=== PATIENT | female | born 1975 | race Caucasian/White ===

== ENCOUNTER 2019-09-26 03:49 | Emergency (ER) | payer OTHER ==
[2019-09-26] MEDS ORDERED: diphenhydrAMINE HCL 50 MG/ML VIAL IVP ONE (03:56)
[2019-09-26] MEDS ORDERED: FAMOTIDINE 20 MG/2 ML VIAL IV ONE (03:56)
[2019-09-26] MEDS ORDERED: methylPREDNISolone SOD SUCC 40 MG/ML VIAL IVP ONE (03:56)
--- NOTE | 2019-09-26 04:03 | ED Physician Documentation ---
Skin Rash - HISTORIAN Historian: patient - HPI Stated Complaint: hives Chief Complaint: Allergic Reaction Additional Information: Patient presents to ED with hives all over her body. Patient states she is unsure what she got into that caused the rash. She ate [place] food for dinner but this is nothing new to her. She woke up with itchy hives all over. She denies wheezing, shortness of breath, tongue/mouth swelling or chest pain. Onset: hours (2) Timing: still present Duration: worse Location: generalized Quality: itchy Where: home Context: Medication Exposure: none Context: Food Exposure: none - ROS CONST: denies: fever CVS/RESP: denies: chest pain, shortness of breath EYES/ENT: denies: sore throat GI/: denies: vomiting, nausea MS/SKIN/LYMPH: none NEURO/PSYCH: denies: headache - PAST HX Past History: none Other History: none Surgeries/Procedures: No Allergies/Adverse Reactions: Allergies Allergy/AdvReac Type Severity Reaction Status Date / Time cashew nut AdvReac Severe Generalized Verified 09/26/19 04:24 Redness Home Medications: Ambulatory Orders Medication Instructions Recorded Epinephrine [Epipen] 0.3 mg IJ ONCE PRN #1 auto.injct 09/26/19 Epinephrine [Epipen] 0.3 mg IM ONCE PRN #1 auto.injct 09/26/19 Methylprednisolone [Medrol] 4 mg PO DIRECTED #1 tab.ds.pk 09/26/19 Methylprednisolone [Medrol] 4 mg PO DIRECTED #1 tab.ds.pk 09/26/19 - SOCIAL HX Smoking History: non-smoker Alcohol Use: none Drug Use: none - FAMILY HX Family History: none - VITAL SIGNS Vital Signs: Vital Signs Temp Pulse Resp BP Pulse Ox 98.1 F 75 20 128/85 99 09/26/19 05:14 09/26/19 05:14 09/26/19 05:14 09/26/19 05:14 09/26/19 05:14 - REVIEWED ASSESSMENTS Nursing Assessment Reviewed: Yes Vitals Reviewed: Yes ED Results Lab/Radiology - Orders Orders: ED Orders Category Date Time Status 0.9 % Sodium Chloride [Normal Saline] 1,000 ml Med 09/26/19 04:04 Discontinued IV Q1H Famotidine/Pf [Pepcid] Med 09/26/19 03:56 Discontinued 40 mg IV NOW ONE diphenhydrAMINE HCL [Benadryl] Med 09/26/19 03:56 Discontinued 50 mg IVP NOW ONE methylPREDNISolone SOD SUCC [SOLU-Medrol] Med 09/26/19 03:56 Discontinued 120 mg IVP NOW ONE Skin Rash Physical Exam - EXAM General Appearance: no acute distress, alert Skin: skin rash Location: generalized Character: urticarial Symptoms: warmth, swelling Extremities: non-tender EENT: eyes nml inspection Neck: trachea midline, no swelling Respiratory: no resp distress, chest non-tender CVS: reg. rate & rhythm, heart sounds nml Abdomen: non-tender Neuro/Psych: oriented x3, mood/affect nml Discharge Clincal Impression: Urticarial rash Prescriptions: Epinephrine [Epipen] 0.3 mg IM ONCE PRN #1 auto.injct PRN Reason: allergic reaction Epinephrine [Epipen] 0.3 mg IJ ONCE PRN #1 auto.injct PRN Reason: allergic reaction Methylprednisolone [Medrol] 4 mg PO DIRECTED #1 tab.ds.pk Methylprednisolone [Medrol] 4 mg PO DIRECTED #1 tab.ds.pk Referrals: ALESSANDRO CANTU FNP [Primary Care Provider] - 2 Days Additional Instructions: 1. Use epipen at first sign of difficulty breathing or tongue swelling, then call 911 2. Benedryl 50mg every 4 hours as needed for itching/rash 3. Pepcid 20mg every 12 hours until rash is gone 4. Take Medrol dose pack as directed 5. Follow up with PCP within 3 days 6. Return to ER for new or worsening symptoms Condition: Stable Disposition: 01 HOME, SELF-CARE Decision to Admit: NO Date of Decison to Admit: 09/26/19 Decision Time: 05:15
[2019-09-26] MEDS ORDERED: 0.9 % SODIUM CHLORIDE 1,000 ML IV ONE (04:04)
[2019-09-26 05:26] VITALS: BP 128/85
== END 2019-09-26 05:13 | disposition home or self-care (01) ==
LOC: ED 03:49
DX: L50.0 Allergic urticaria (principal); Z88.8 Allergy status to other drugs, medicaments and biological substances
CPT/HCPCS: 96361; 96374; 96375; 99284; J1200; J2920; J7030; J1030; S1016